=== PATIENT | female | born 1975 | race Caucasian/White ===

== ENCOUNTER 2020-03-06 06:51 | Outpatient (NON) | payer OTHER, SELFPAY ==
[2020-03-06 17:22] LABS: SARS-CoV-2 RNA PCR Positive
== END 2020-03-06 06:52 ==
LOC: ANHCOVIDDT 06:55
PROVIDERS: PCP Family Medicine; Visit Provider Nurse Practitioner Family
DX: U07.1 COVID-19 (principal)
CPT/HCPCS: 87635; C9803; U0003

== ENCOUNTER 2020-04-30 18:00 | Outpatient (RCR) | payer OTHER, SELFPAY ==
[2020-04-22 14:30] VITALS: PULSE 75
--- NOTE | 2020-05-05 15:14 | PCCPR ---
Pt called to inform of absence. 05/05/2020.
== END 2020-05-07 13:27 | disposition home or self-care (01) ==
LOC: ANHCPREHAB 18:00
PROVIDERS: PCP Family Medicine; Visit Provider Internal Medicine Cardiovascular Disease
DX: Z95.5 Presence of coronary angioplasty implant and graft (principal)
CPT/HCPCS: 93798

== ENCOUNTER 2020-10-08 08:38 | Outpatient (CLI) | payer OTHER, SELFPAY ==
--- NOTE | ~2020-10-08 | MM_ITS ---
EXAMINATION: MM screening rola BI w gregory HISTORY: Screening mammogram TECHNIQUE: Craniocaudal and mediolateral oblique 3-D tomosynthesis images were obtained and synthetic 2-D images were generated. CAD analysis was submitted and interpreted. COMPARISON: 12/14/2017 diagnostic right digital mammogram and limited right breast ultrasound limited right breast ultrasound 05/17/2017 bilateral digital screening mammogram BREAST PARENCHYMAL COMPOSITION: The breasts are heterogeneously dense, which may obscure small masses . FINDINGS: There is asymmetry in the upper outer quadrant of the right breast. Diagnostic right mammog lucy is recommended with ultrasound if required. Otherwise there is no evidence of suspicious mass, calcification, or architectural distortion to sugg est malignancy in either breast. There has been no other suspicious interval change. IMPRESSION: 1. Upper outer quadrant right breast mammographic asymmetry 2. Diagnostic right mammogram is recommended, with ultrasound if required BI-RADS Category 0: Incomplete: Needs additional imaging evaluation. Reviewed, dictated and finalized at location A.
== END 2020-10-08 08:39 | disposition home or self-care (01) ==
LOC: ANHIMG 08:40
PROVIDERS: PCP Family Medicine; Visit Provider Obstetrics & Gynecology
DX: Z12.31 Encounter for screening mammogram for malignant neoplasm of breast (principal); R92.8 Other abnormal and inconclusive findings on diagnostic imaging of breast
CPT/HCPCS: 77063; 77067

== ENCOUNTER 2020-10-13 09:54 | Outpatient (CLI) | payer OTHER, SELFPAY ==
--- NOTE | ~2020-10-13 | MM_ITS ---
EXAMINATION: MM diagnostic mammo unilat RT HISTORY: Right breast focal asymmetry TECHNIQUE: Additional 3-D tomosynthesis images of the right breast were performed and synthetic 2-D i mages were generated. CAD analysis was submitted and interpreted. COMPARISON: 10/08/2020, 12/14/2017, 05/17/2017 FINDINGS: There is a return to baseline fibroglandular appearance with spot compression of the right breast in the area questioned on screening mammogram. IMPRESSION: 1. No mammographic evidence of malignancy. 2. Recommend routine screening mammography in one year. BI-RADS Category 1: Negative Reviewed, dictated and finalized at location A.
== END 2020-10-13 09:55 | disposition home or self-care (01) ==
LOC: CHSIMG 09:55
PROVIDERS: PCP Family Medicine; Visit Provider Obstetrics & Gynecology
DX: R92.2 Inconclusive mammogram (principal)
CPT/HCPCS: 77065

== ENCOUNTER 2022-10-27 08:26 | Outpatient (CLI) | payer OTHER, SELFPAY ==
--- NOTE | ~2022-10-27 | MM_ITS ---
EXAMINATION: MM screening rola BI w gregory HISTORY: Screening mammogram TECHNIQUE: Craniocaudal and mediolateral oblique 3-D tomosynthesis images were obtained and synthetic 2-D images were generated. CAD analysis was submitted and interpreted. COMPARISON: 10/13/2020 diagnostic right mammogram 10/08/2020 bilateral screening mammogram 12/14/2017 diagnostic right mammogram and limited right breast ultrasound examination limited right 05/17/2017 bilateral screening mammogram breast ultrasound BREAST PARENCHYMAL COMPOSITION: There are scattered areas of fibroglandular density. FINDINGS: Stable fibroglandular asymmetry. There is no evidence of suspicious mass, calcification, or architectural distortion to suggest malignancy in either breast. There has been no suspicious interv al change. IMPRESSION: 1. No mammographic evidence of malignancy. 2. Recommend routine screening mammography in one year. BI-RADS Category 1: Negative Reviewed, dictated and finalized at location A.
== END 2022-10-27 08:27 | disposition home or self-care (01) ==
LOC: CHSIMG 08:29
PROVIDERS: PCP Family Medicine; Visit Provider Obstetrics & Gynecology
DX: Z12.31 Encounter for screening mammogram for malignant neoplasm of breast (principal)
CPT/HCPCS: 77063; 77067